=== PATIENT | male | born 1975 | race Caucasian/White ===

== ENCOUNTER 2016-07-16 19:58 | Emergency (ER) | payer MEDICAID ==
[2016-07-16 20:06] VITALS: TEMP 97.5
[2016-07-16] MEDS ORDERED: methylPREDNISolone SOD SUCC 125 MG/2 ML VIAL IVP ONE (20:15)
--- NOTE | 2016-07-16 20:17 | EDPHY ---
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 No trauma no fall. Pain is reproducible with range of motion at the waist. He has been experiencing intermittent right lower extremity radicular pain with no foot drop. No incontinence or retention. No saddle anesthesia. No fever or chills. No flu- like symptoms. No urinary complaints such as hematuria dysuria increased frequency. PRIMARY CARE PROVIDER:worker's compensation REVIEW OF SYSTEMS: A ten point review of systems was performed and is negative with the exception of the items mentioned in the HPI PAST MEDICAL & SURGICAL HISTORY: prior history of right lower extremity radiculopathy SOCIAL HISTORY: no IV drug use PHYSICAL EXAM (Prior to examination, patient consented to physical exam, hands were washed and my usual and customary physical exam procedures followed) 1) GENERAL: Well-developed, well-nourished, alert and oriented. Appears uncomfortable 2) HEAD: Normocephalic, atraumatic 3) HEENT: Pupils equal, round, reactive to light bilaterally. Sclera anicteric. 4) NECK: Full range of motion, no meningeal signs. 5) LUNGS: Clear auscultation bilaterally 6) HEART: Regular rate and rhythm, no murmur, no heave, no gallop. 7) ABDOMEN: No guarding, no rebound, no focal tenderness, 8) MUSCULOSKELETAL: Moving all extremities, no focal areas of tenderness, no obvious trauma. No peripheral edema or discoloration. 9) BACK: tender to palpation right lumbar paraspinous muscle. No CVA tenderness , no midline vertebral tenderness, no fluctuance, no step-off, no obvious trauma , no visual or palpable abnormality. Patella, Achilles reflexes intact to bilateral strength 5/5 10) SKIN: No rash, no petechiae. DIFFERENTIAL DIAGNOSIS: In no particular order, including but not limited to, fracture, sprain/strain, cauda equina, discogenic etiology, spinal infectious etiology. MEDICAL DECISION MAKING Lower index of suspicion for cauda equina, epidural abscess, epidural hematoma, lumbar myositis, diskitis, as the patient is neurologically intact in the lower extremities, has patella and Achilles reflexes intact and equal bilaterally, has no neurologic deficits, no incontinence, no retention, no midline pain, no fluctuance, afebrile, no flulike symptoms. Pain may be secondary to muscular strain, may be secondary to discogenic etiology. At this point I do not identify definitive indication for emergent MRI, however patient may necessitate this on an outpatient basis. He has been given a trigger point injection notes improvement in symptoms but has residual pain. Plan will be discharged with analgesia. He has been given acute back pain precautions. Smoking Status: Heavy smoker Constitutional: Initial Vital Signs Temperature (C) 36.4 C 07/16/16 20:02 Heart Rate 116 H 07/16/16 20:02 Respiratory Rate 22 H 07/16/16 20:02 Blood Pressure 108/74 07/16/16 20:02 O2 Sat (%) 97 07/16/16 20:02 O2 Delivery Mode Room Air Allergies/Adverse Reactions: No Known Allergies Allergy (Unverified 07/16/16 20:35) MDM/Departure - MDM Procedures: Procedure: Trigger point injection Indications: Focal tenderness at the right paraspinous lumbar region Indications risks benefits discussed with patient. Area of focal/worst tenderness identified. Using Solu-Medrol and 0.5% plain bupivacaine on a 27 gauge needle that was introduced into the muscle, multiple injections were fanned. Patient tolerated procedure well. - Depart Disposition: Home, Routine, Self-Care Clinical Impression: Acute low back pain Qualifiers: Back pain laterality: right Sciatica presence: with sciatica Sciatica laterality: sciatica of right side Qualified Code(s): M54.41 - Lumbago with sciatica, right side Condition: Good Instructions: Hydrocodone/Acetaminophen (By mouth), Acute Low Back Pain (ED) Additional Instructions: Seek medical attention if you develop new or worsening pain, if you develop bladder or bowel dysfunction, numbness around your perineum, foot drop, or any other symptoms that concern you. Stand Alone Forms: Work Limited Duty, Work Comp Follow Up, Work Excuse Referrals: Follow-up, with your work comp provider in 1-3 days [Other] - As per Instructions
[2016-07-16] MEDS ORDERED: HYDROCOD/APAP 5/325 PREPACK#6 BTL TAKEHOME ONE (20:35)
[2016-07-16] MEDS ORDERED: OXYCODONE/APAP 5/325 TAB PO ONE (20:37)
[2016-07-16 20:53] VITALS: BP 110/74; PULSE 98; RESP 20; O2SAT 96
== END 2016-07-16 20:53 | disposition home or self-care (01) ==
PROC: 3E023GC Introduction of Other Therapeutic Substance into Muscle, Percutaneous Approach (ICD-10-PCS; principal; 2016-07-16)
DX: M54.41 Lumbago with sciatica, right side (principal); F17.200 Nicotine dependence, unspecified, uncomplicated
CPT/HCPCS: 96374

== ENCOUNTER 2016-09-04 22:02 | Emergency (ER) | payer MEDICAID ==
[2016-09-04 22:13] VITALS: BP 115/89; PULSE 98; RESP 18; TEMP 97.9; O2SAT 96
--- NOTE | 2016-09-04 22:27 | EDPHY ---
H & P Stated Complaint: med clear for residential Time Seen by Provider: 09/04/16 22:06 HPI/ROS: HPI The patient presents brought in by ambulance for medical clearance for residential. Apparently, the patient was trespassing at a grocery store and was noted to be acting strangely, thus he is brought in. He was there with his and child. He is here from [place]. He denies any trauma. He was noted by the paramedics to be "wiggly" though cooperative. He did admit to methamphetamine use today. He denies any injuries. He denies any other Ingestions. He does take Prozac for depression. He denies any weakness of his arms or legs, changes in his vision. He does report a mild headache that is gradually improving. He does not have any head injury. REVIEW OF SYSTEMS Constitutional: No fever, no chills. Eyes: No discharge. ENT: No sore throat. Cardiovascular: No chest pain, no palpitations. Respiratory: No cough, no shortness of breath. Gastrointestinal: No abdominal pain, no vomiting. Genitourinary: No hematuria. Musculoskeletal: No back pain. Skin: No rashes. Neurological: No headache. PMHx: History of sciatica with a visit here in June of 2016, superficial cyst removed from his back Soc Hx: From [place], methamphetamine use, transient PHYSICAL General Appearance: Alert, no distress Eyes: Pupils equal and round no pallor or injection ENT, Mouth: Mucous membranes moist Respiratory: There are no retractions, lungs are clear to auscultation Cardiovascular: Regular rate and rhythm Gastrointestinal: Abdomen is soft and non-tender, no masses, bowel sounds normal Neurological: A&O, moves all extremities Skin: Warm and dry, no rashes Musculoskeletal: Neck is supple non tender Extremities: symmetrical, full range of motion Psychiatric: Patient is oriented X 3, there is no agitation Source: Patient, Police, EMS - Personal History Current Tetanus Diphtheria and Acellular Pertussis (TDAP): Unsure - Medical/Surgical History Hx Asthma: No Hx Chronic Respiratory Disease: No Hx Diabetes: No Hx Cardiac Disease: No Hx Renal Disease: No Hx Cirrhosis: No Hx Alcoholism: No Hx HIV/AIDS: No Hx Splenectomy or Spleen Trauma: No Other PMH: denies history - Social History Smoking Status: Heavy smoker Constitutional: Initial Vital Signs Temperature (C) 36.6 C 09/04/16 22:08 Heart Rate 98 09/04/16 22:08 Respiratory Rate 18 09/04/16 22:08 Blood Pressure 115/89 H 09/04/16 22:08 O2 Sat (%) 96 09/04/16 22:08 O2 Delivery Mode Room Air Allergies/Adverse Reactions: No Known Allergies Allergy (Unverified 09/04/16 22:08) Home Medications: [facility] Medical Decision Making Differential Diagnosis: This is a 41-year-old male with history of sciatica that is brought in by paramedics for medical clearance for residential after found trespassing in a grocery store. He was acting strangely, he admits to methamphetamine use. Denies any injuries, falls, loss of consciousness. On exam, he is alert, oriented x3, is linear and conversant. He denies any suicidal ideation. He is writhing a bit in the gurney, however is cooperative and during my exam does not appear to be in any pain or have any neurologic deficit. Differential diagnosis includes methamphetamine abuse, polysubstance abuse, less likely intracranial hemorrhage given no external signs of trauma or report by history. Doubt meningitis given no fever or nuchal rigidity or photophobia. He will be medically clear for residential. Departure - Departure Disposition: Home, Routine, Self-Care Clinical Impression: Methamphetamine abuse, Medical clearance for incarceration Condition: Good Instructions: Methamphetamine Abuse (ED) Referrals: [facility] [Outside] - As per Instructions
== END 2016-09-04 22:33 | disposition home or self-care (01) ==
LOC: EDUNIT#
DX: F15.10 Other stimulant abuse, uncomplicated (principal); F17.200 Nicotine dependence, unspecified, uncomplicated